=== PATIENT | male | born 1980 | race Caucasian/White ===

== ENCOUNTER 2017-05-18 19:27 | Emergency (ER) | payer OTHER, MEDICAID ==
[~2017-05-18] VITALS: Ht 180.3 cm; Wt 97.5 kg
[2017-05-18 20:35] VITALS: BP 135/78
== END 2017-05-18 20:39 | disposition home or self-care (01) ==
LOC: ER 19:28
DX: G50.0 Trigeminal neuralgia (principal)
CPT/HCPCS: 99283; A4606; Z7610